=== PATIENT | female | born 1955 | race African-American/Black ===

== ENCOUNTER 2017-03-15 07:36 | Day surgery (SDC) | payer OTHER ==
--- NOTE | 2017-03-12 15:33 | HISTORY AND PHYSICAL E ---
History and Physical NAME: NAVA LOMBARDI : 1955 AGE: 62Y ADMITTED: 03/15/2017 ROOM: CHIEF COMPLAINT: Patient does have history of polyps. Plan colonoscopy. PRIMARY CARE PHYSICIAN: Dr. Tristan SOCIAL HISTORY: She smokes. She does not drink. Patient did have left knee surgery and breast reduction. REVIEW OF SYSTEMS: Negative cardiac. Negative diabetes. FAMILY HISTORY: Father had prostate disease. Her mom is alive. PHYSICAL EXAMINATION: GENERAL: Pleasant, alert, oriented. VITAL SIGNS: Blood pressure is 120/70, pulse 80, respirations 18, temp is 98. HEAD, EYES, EARS, NOSE, THROAT: Normal. ABDOMEN: Soft. NEUROLOGIC: Negative. Patient did have adenoma polyp resected. Prep was inadequate. She did have adenoma polyp. Poor prep. PLAN: Colonoscopy. Patient referred to us by Dr. Tristan. MEDICATIONS: She is on blood pressure medications once daily. CONCLUSION: Colon screening. DICTATING PHYSICIAN: SHANTI MILLAN M.D. [id number] Y#: [id number] ID: [id number] JOB#: [id number] ACCT: [id number] cc:LAUREANO TRISTAN M.D., MAHMOUD M.D. >
[2017-03-15] MEDS ORDERED: LIDOCAINE 2% JELLY 30 ML TUBE ONE (07:48)
[2017-03-15] MEDS ORDERED: ONDANSETRON HCL INJ/PF 4 MG/2 ML SDV ONE (07:49)
[2017-03-15] MEDS ORDERED: GLYCOPYRROLATE INJ 0.4 MG/2 ML VIAL ONE (07:49)
[2017-03-15] MEDS ORDERED: NALOXONE HCL INJ/PF 0.4 MG/1 ML SDV ONE (07:49)
[2017-03-15] MEDS ORDERED: EPINEPHRINE INJ 1 MG/10 ML DISP.SYRIN ONE (07:50)
[2017-03-15] MEDS ORDERED: FLUMAZENIL INJ 0.5 MG/5 ML VIAL ONE (07:50)
[2017-03-15] MEDS ORDERED: FENTANYL CITRATE INJ/PF 100 MCG/2 ML AMPUL ONE (07:50)
[2017-03-15] MEDS ORDERED: GLUCAGON,HUMAN RECOMB 1 MG INJ ONE (07:51)
[2017-03-15] MEDS: MIDAZOLAM 2 MG/2 ML INJ ONE ×2 (08:11→08:17)
[2017-03-15 09:26] VITALS: BP 116/81
--- NOTE | 2017-03-15 12:37 | DISCHARGE SUMMARY E ---
Discharge Summary NAME: NAVA LOMBARDI : 1955 AGE: 62Y ADMITTED: 03/15/2017 DISCHARGED: 03/15/2017 PROCEDURE: Colonoscopy. FINAL DIAGNOSIS: Remote history of polyps. Colonoscopy today shows no polyps. HOSPITAL COURSE: A 62-year-old female known to me. She had a history of polyps in the past. Today's colon screening shows no polyps. Her colonoscopy was completed to the cecum. No tissue biopsies. No abnormalities. She did have remote history of adenoma polyp. Today, there were no polyps, good prep. DISCHARGE PLAN: Soft diet today. Consider followup colonoscopy 10 years. DICTATING PHYSICIAN: SHANTI MILLAN M.D. [id number] PHY#: [id number] ID: [id number] JOB#: [id number] ACCT: [id number] cc:SHANTI MILLAN M.D. >
--- NOTE | 2017-03-15 12:40 | OPERATIVE REPORT E ---
Operative Report NAME: NAVA LOMBARDI : 1955 AGE: 62Y DATE OF SURGERY: 03/15/2017 ROOM: PREOPERATIVE DIAGNOSES: 1. Previous history of colon polyp. 2. Colon screening. OPERATION: Colonoscopy. SURGEON: SHANTI MILLAN M.D. ANESTHESIA: Versed 3 and fentanyl 50. TISSUE REMOVED OR ALTERED: None. PROCEDURE: Rectal exam normal. Sigmoid descending colon normal. Transverse colon normal. Ascending, cecum and ileocecal valve normal. Scope withdrawn from cecum, ascending, transverse, descending, sigmoid, all the way to the rectum. CONCLUSION: Colonoscopy screening to the cecum. Adequate prep. Good visualization. No polyps. RECOMMENDATIONS: Followup colonoscopy after 10 years. DICTATING PHYSICIAN: SHANTI MILLAN M.D. [id number] [id number] [facility]#: [id number] ID: [id number] JOB#: [id number] ACCT: [id number] cc:LAUREANO TRISTAN M.D., MAHMOUD M.D. >
== END 2017-03-15 09:35 | disposition home or self-care (01) ==
LOC: END 07:36
PROVIDERS: ATTEND Specialist
PROC: 0DJD8ZZ Inspection of Lower Intestinal Tract, Via Natural or Artificial Opening Endoscopic (ICD-10-PCS; principal; 2017-03-15 08:00)
DX: Z12.11 Encounter for screening for malignant neoplasm of colon (principal); Z86.010 Personal history of colon polyps; I10 Essential (primary) hypertension; F17.210 Nicotine dependence, cigarettes, uncomplicated; Z79.899 Other long term (current) drug therapy
CPT/HCPCS: 45378; J2250; J3010; J1610; J2405; J0171; J2310; J3490